=== PATIENT | female | born 1945 | race Caucasian/White ===

== ENCOUNTER 2020-08-06 14:14 | Inpatient (IN) | payer MEDICARE ==
[2020-08-06] MEDS ORDERED: HUMAN PROTHROMBIN COMPLX IV SCH (15:45)
[2020-08-06] MEDS ORDERED: [UNRECOGNIZED DRUG - OTHER] IV SCH (15:45)
[2020-08-06] MEDS ORDERED: HUM PROTHROMBIN CPLX IV SCH (15:45)
[2020-08-06] MEDS ORDERED: Pantoprazole 40 MG VIAL ONE (15:50)
[2020-08-06 15:53] LABS: #Basophils 0.1 thou/uL (0.0-0.2); #Lymphocytes 1.9 thou/uL (1.20-3.40); #Monocytes 0.7 thou/uL (0.11-0.59); #Neutrophils 3.8 thou/uL (1.40-6.50); %Basophils 0.9 % (0.0-1.0); %Eosinophils 0.6 % (0.0-10.0); %Monocytes 10.4 % (0.0-10.0); Hemoglobin 8.6 g/dL (12.0-16.0); Mean Corpuscular HGB CONC 32.5 g/dL (32.0-36.0); Mean Corpuscular Hemoglobin 28.4 pg (27.0-31.0); Mean Corpuscular Volume 87.3 fL (78.0-98.0); Mean Platelet Volume 7.8 fL (7.4-10.4); Platelet Count 167 thou/uL (130-400); RBC Distribution Width 14.5 % (11.5-14.5); Red Blood Cell (RBC) Count 3.03 mill/uL (4.20-5.40); White Blood Cell (WBC) Count 6.4 thou/uL (4.8-10.8)
[2020-08-06] MEDS ORDERED: Oxymetazoline HCl 0.05% (30 ML BOT) ONE (16:37)
--- NOTE | 2020-08-06 17:33 | PDOC.HHP ---
Hospitalist HPI - History of Present Illness dizziness History of Present Illness: Patient is a 75 year old female with a PMH of blindness, tobacco smoking, CAD S/P CABG and aortic valve replacement with a bovine bioprosthetic valve in 2011. Patient follows up with Dr. Price from cardiology. She has been stable over these years until today when she woke up feeling dizzy and diaphoretic. She was also complaining of left shoulder pain. She denies any abdominal pain. She checked her BP and it was 88/44 and decided to present to [place] [facility]. She was found to be severely anemia with Hb 6.4. Additional assessment showed she had melena. She received 2 units of pRBC and 80 mg of PPI bolus and was transferred here for higher level of care. Of note, patient usually takes a low dose ASA and eliquis. For the past 3 years, she has been using ibuprofen PM for sleep on a daily basis. ED Course: [facility] Repeat Hb 8.6 SBP 120 Normal Heart rate Reviewed records from OSH: - uptrending troponin 0.027--->0.027 - EKG with inferolateral T wave inversions Hospitalist History - Past Medical History Source: father (Father was on warfarin. Indication unknown Mother had blindness as well, and HTN) - Exam General - other findings: LETHARGIC, pale Eye: PERRL, anicteric sclera ENT: normocephalic atraumatic Neck: supple, symmetric Heart: RRR, murmur present Respiratory: CTAB, no wheezes, no rales, no ronchi Gastrointestinal: soft, non-tender, non-distended, normal bowel sounds Extremities: no cyanosis, no clubbing, no edema Psychiatric: normal affect, normal behavior Hospitalist Results - Labs Result Diagrams: 08/06/20 15:27 Lab results: WBC 6.4 thou/uL (4.8-10.8) 08/06/20 15:27 Hgb 8.6 g/dL (12.0-16.0) L 08/06/20 15:27 Hct 26.5 % (36.0-47.0) L 08/06/20 15:27 MCV 87.3 fL (78.0-98.0) 08/06/20 15:27 Plt Count 167 thou/uL (130-400) 08/06/20 15:27 Neutrophils % 59.0 % (42.0-75.0) 08/06/20 15:27 CK-MB (CK-2) 2.0 ng/mL (0-6.6) 08/06/20 15:27 Troponin I 0.041 ng/mL (< 0.028) H 08/06/20 15:27 Hospitalist H&P A/P - Problem (1) Upper GI bleeding Code(s): K92.2 - GASTROINTESTINAL HEMORRHAGE, UNSPECIFIED Status: Acute (2) Elevated troponin I level Code(s): R77.8 - OTHER SPECIFIED ABNORMALITIES OF PLASMA PROTEINS Status: Acute (3) Hx of CABG Status: Acute (4) S/P aortic valve replacement with bioprosthetic valve Code(s): Z95.3 - PRESENCE OF XENOGENIC HEART VALVE Status: Acute (5) Acute blood loss anemia Code(s): D62 - ACUTE POSTHEMORRHAGIC ANEMIA Status: Acute - Plan Plan: Assessment 75 year old female with CAD s/p CABG, bovine aortic valve currently admitted with suspected upper GI bleeding, which is most likely medication- induced as she is currently on ASA, apixaban and ibuprofen. She received 80 mg bolus of IV protonix, 2 units of pRBC at [place] [facility], AND [facility] in this ER ([facility]). Upper GI bleeding Acute blood loss anemia Elevated troponin and abnormal EKG CABG Bioprosthetic aortic valve Blindness plan: Admit to PCU with telemetry Hold offending agents: ASA, apixaban and ibuprofen Obtain coagulation panel Continue NPO status Continue LR for volume repletion 40 mg of IV PPI injections to minimize risk of volume overload Monitor CBC q 6 hours SCD for DVT ppx GI consulted by ER I will also trend her troponin and EKG Obtain a 2-D echo Fall precautions due to blindness PT/OT when medically cleared
[2020-08-06] MEDS ORDERED: Pantoprazole 80 MG in Sodium Chloride 0.9% 100 ML IVPB SCH (18:00)
[2020-08-06 18:06] LABS: #Basophils 0.1 thou/uL (0.0-0.2); #Eosinphils 0.1 thou/uL (0.0-0.7); #Lymphocytes 1.8 thou/uL (1.20-3.40); #Monocytes 0.7 thou/uL (0.11-0.59); #Neutrophils 3.8 thou/uL (1.40-6.50); %Basophils 1.1 % (0.0-1.0); %Eosinophils 1.2 % (0.0-10.0); %Lymphocytes 28.4 % (21.0-51.0); %Monocytes 10.3 % (0.0-10.0); %Neutrophils 59.1 % (42.0-75.0); Hemoglobin 8.7 g/dL (12.0-16.0); Mean Corpuscular Hemoglobin 28.5 pg (27.0-31.0); Mean Corpuscular Volume 86.4 fL (78.0-98.0); Mean Platelet Volume 7.6 fL (7.4-10.4); Platelet Count 160 thou/uL (130-400); RBC Distribution Width 14.3 % (11.5-14.5); Red Blood Cell (RBC) Count 3.05 mill/uL (4.20-5.40); White Blood Cell (WBC) Count 6.4 thou/uL (4.8-10.8)
[2020-08-06 18:12] LABS: INR-International Normal Ratio 1.2; PTT 31.5 sec (22.9-36.1)
[2020-08-06 21:38] VITALS: BMI 26.7
[2020-08-07] MEDS: Lactated Ringer's 1,000 ML IV SCH ×4 (00:01→19:25)
[2020-08-07] MEDS: Pantoprazole 40 MG VIAL IVP SCH ×3 (00:01→20:37)
[2020-08-07] MEDS ORDERED: HYDROcodone/Acetaminophen 5/325 mg Tablet PO SCH ×2 (00:30→21:15)
[2020-08-07 05:52] LABS: SARS-CoV-2 PCR by NAA Not Detected (NotDetected)
[2020-08-07] MEDS ORDERED: Succinylcholine 200 MG/10 ml SYRINGE FS ONE (09:35)
[2020-08-07] MEDS ORDERED: Ondansetron PF 4 MG/2 ML Vial ONE (09:35)
[2020-08-07] MEDS ORDERED: Dexamethasone 20 MG/5 ML VIAL ONE (09:35)
[2020-08-07] MEDS ORDERED: PROPOFOL 200 MG/20 ML VIAL ONE (09:35)
--- NOTE | 2020-08-07 09:38 | CON ---
DATE OF CONSULTATION: 08/07/2020 REASON FOR CONSULT: GI hemorrhage. HISTORY OF PRESENT ILLNESS: Ms. Terry is a 75-year-old female, history of being blind, previous coronary artery disease with bypass and aortic valve replacement, bovine prosthetic valve in 2011. He sees Dr. Price and sees TOÑO Sanchez in [place], [place]. She was in her normal state of health yesterday when she began to complain of bad left shoulder pain and felt diaphoretic and almost passed out. She had some loose stools at home apparently, but she could not see the color. She has retinitis pigmentosa. She was hypotensive and called the emergency room and came to the hospital in her hemoglobin was 6.4. She also had melena on rectal exam. She received 2 units of blood and a PPI bolus and transferred here. Apparently, the patient takes aspirin, Eliquis at home. She was taking some Motrin PM apparently as well. PAST MEDICAL HISTORY: 1. Coronary artery disease, status post bypass. 2. Aortic valve replacement with pig valve. 3. Retinitis pigmentosa. PAST SURGICAL HISTORY: Aortic valve replacement, CABG, previous cholecystectomy, hernia repair. SOCIAL HISTORY: Patient drinks rarely socially. She does not use drugs. She does smoke. Some reports indicate she stopped in 2011. ALLERGIES: IODINE. MEDICATIONS: 1. Digoxin. 2. Lasix. 3. Metoprolol. 4. K-Dur. 5. Alendronate. 6. . 7. Aspirin. 8. Irbesartan. 9. Furosemide. 10. Ibuprofen. 11. Eliquis. 12. Fosamax. Present medications: 1. Protonix 40 mg IV q.12. 2. LR 125 an hour. REVIEW OF SYSTEMS: The patient is a little bit confused, talking with her significant other. He states this is not usually the case. She is blind, has decreased vision. Her left shoulder pain persists, but is not as bad as it was when she came in. She denies any shortness of breath. She denies any cough. She denies any hematemesis. She denies any bright red blood per rectum. She denies abdominal pain, rashes, myalgias, arthralgias, or edema in her legs. PHYSICAL EXAMINATION: VITAL SIGNS: Temperature 98, pulse 75, blood pressure 121/58. GENERAL: She is resting comfortably in bed. She is very pleasant. She has poor memory for events of yesterday. She is in no distress. HEENT: Conjunctivae and sclerae are pale and clear respectively. Oropharynx, no lesions. NECK: Supple without any adenopathy. There is transmitted murmur to the right carotid. HEART: Has a systolic ejection murmur 4+. LUNGS: Expiratory wheezing. ABDOMEN: Soft and nontender with no rebound or guarding. EXTREMITIES: Reveal no clubbing, cyanosis, or edema. SKIN: Without lesions. NEUROLOGIC: She is otherwise intact. LABORATORY DATA: Hemoglobin was 6.4 on presentation at outside hospital yesterday, baseline was 11.5 on 03/30/2020. Hemoglobin 6.4 today, it was 8.6 on arrival yesterday here and at 1754, it was 8.7, has not been rechecked today. INR 1.2. Sodium 137, potassium 3.8, BUN and creatinine 20 and 0.6, glucose 132, calcium 7.5. Liver function tests normal. Troponin was 0.022, then 0.027 and 0.041. Protein 5.8, albumin 3.0. Urine, trace blood. Digoxin 0.45. COVID negative screen. Chest x-ray, no acute cardiopulmonary processes. ASSESSMENT: 1. A 75-year-old female, on Eliquis, aspirin, and also taking ibuprofen at home, who presented with melena and drop in hemoglobin after presyncopal episode at home, presently hemodynamically stable. 2. It is unclear why she is on Eliquis. She may have atrial fibrillation. She has a porcine valve. She would not need anticoagulation for that. 3. Coronary artery disease. 4. Retinitis pigmentosa with blindness. PLAN: EGD today. PPIs. Job ID: [id number]
[2020-08-07 13:23] LABS: #Lymphocytes 0.8 thou/uL (1.20-3.40); #Monocytes 0.2 thou/uL (0.11-0.59); #Neutrophils 6.5 thou/uL (1.40-6.50); %Basophils 0.1 % (0.0-1.0); %Eosinophils 0.5 % (0.0-10.0); %Lymphocytes 10.7 % (21.0-51.0); %Monocytes 2.3 % (0.0-10.0); %Neutrophils 86.5 % (42.0-75.0); Hemoglobin 7.5 g/dL (12.0-16.0); Mean Corpuscular HGB CONC 33.1 g/dL (32.0-36.0); Mean Corpuscular Volume 87.7 fL (78.0-98.0); Mean Platelet Volume 7.7 fL (7.4-10.4); Platelet Count 143 thou/uL (130-400); RBC Distribution Width 15.1 % (11.5-14.5); Red Blood Cell (RBC) Count 2.57 mill/uL (4.20-5.40); White Blood Cell (WBC) Count 7.5 thou/uL (4.8-10.8)
[2020-08-07 13:43] LABS: Anion Gap 11 mmol/L (10-20); BUN (Urea Nitrogen) 21 mg/dL (9.8-20.1); Calc. Creatinine Clearance 81 mL/min (70-130); Calcium 7.9 mg/dL (7.8-10.44); Carbon Dioxide 24 mmol/L (23-31); Chloride 108 mmol/L (98-107); Glucose 140 mg/dL (83-110); Potassium 4.2 mmol/L (3.5-5.1); Sodium 139 mmol/L (136-145)
[2020-08-07 13:48] LABS: Troponin I 0.076 ng/mL (< 0.028)
--- NOTE | 2020-08-07 14:03 | PDOC.HOSPP ---
- Subjective Encounter Date: 08/07/20 Subjective: Patient seen by me after her EGD. Tolerated the procedure well. Mental status is intact, palor nearly resolved. - Objective Vital Signs & Weight: Vital Signs (12 hours) Temp Pulse Resp BP Pulse Ox 08/07/20 07:30 97.9 F 94 16 116/57 L 97 08/07/20 05:40 98.3 F 75 18 121/58 L 95 Weight Weight 160 lb 14.999 oz I&O: 08/06/20 08/07/20 08/08/20 06:59 06:59 06:59 Intake Total 1060 Balance 1060 Result Diagrams: 08/07/20 13:11 08/07/20 13:11 Hospitalist ROS - Medication Medications: Active Medications Generic Name Dose Route Start Last Admin Trade Name Freq PRN Reason Stop Dose Admin Lactated Ringer's 1,000 mls @ 125 mls/hr 08/06/20 18:00 08/07/20 07:37 Lactated Ringer's IV Not Given .Q8H VERNELL Pantoprazole Sodium 40 mg 08/06/20 21:00 08/07/20 00:01 Pantoprazole 40 Mg Vial IVP 40 mg Q12HR VERNELL Administration - Exam General Appearance: NAD, awake alert General - other findings: less lethargic Eye: anicteric sclera ENT: normocephalic atraumatic Neck: supple, symmetric Heart: murmur present Respiratory: CTAB, no wheezes, no rales, no ronchi Gastrointestinal: soft, non-tender, non-distended, normal bowel sounds Extremities: no cyanosis, no clubbing, no edema Neurological: cranial nerve grossly intact Psychiatric: normal affect, normal behavior Hosp A/P (1) Upper GI bleeding Code(s): K92.2 - GASTROINTESTINAL HEMORRHAGE, UNSPECIFIED Status: Acute (2) Elevated troponin I level Code(s): R77.8 - OTHER SPECIFIED ABNORMALITIES OF PLASMA PROTEINS Status: Acute (3) Hx of CABG Status: Acute (4) S/P aortic valve replacement with bioprosthetic valve Code(s): Z95.3 - PRESENCE OF XENOGENIC HEART VALVE Status: Acute (5) Acute blood loss anemia Code(s): D62 - ACUTE POSTHEMORRHAGIC ANEMIA Status: Acute - Plan Assessment 75 year old female with CAD s/p CABG, bovine aortic valve transferred from [facility] ER where she presented with dizziness and melena. She was found to have a Hb 6.3, concerning for upper GI bleeding. Patient has been on eliquis, ASA and ibuprofen PM. She received 80 mg bolus of IV protonix, 2 units of pRBC at [facility], AND [facility] in this ER ([facility]). She underwent EGD on 08/07, results are still pending. [facility], her H/H is still trending down Acute GI bleeding Acute blood loss anemia CAD S/P CABG Aortic valve replacement PLAN: I will continue patient on PPI INJECTIONS Follow up EGD report Concern for downtrending H/H. I will keep the patient for hemodyanamic monitoring and H/H check Transfuse if Hb < 7 Defer to GI decision to proceed with additional endoscopic procedures Continue holding ASA, eliquis and ibuprofen. The indications for eliquis is still unclear. She will need to follow up with her [employer] Continue telemetry monitoring
[2020-08-07] MEDS ORDERED: GoLYTELY 4,000 ml Bottle PO SCH (17:00)
[2020-08-07 20:06] LABS: #Monocytes 0.3 thou/uL (0.11-0.59); #Neutrophils 5.8 thou/uL (1.40-6.50); %Basophils 0.2 % (0.0-1.0); %Eosinophils 0.1 % (0.0-10.0); %Lymphocytes 13.8 % (21.0-51.0); %Monocytes 3.5 % (0.0-10.0); %Neutrophils 82.4 % (42.0-75.0); Mean Corpuscular HGB CONC 34.1 g/dL (32.0-36.0); Mean Corpuscular Hemoglobin 29.1 pg (27.0-31.0); Mean Corpuscular Volume 85.4 fL (78.0-98.0); Mean Platelet Volume 7.8 fL (7.4-10.4); Platelet Count 149 thou/uL (130-400); Red Blood Cell (RBC) Count 2.74 mill/uL (4.20-5.40); White Blood Cell (WBC) Count 7.1 thou/uL (4.8-10.8)
[2020-08-07] MEDS ORDERED: Docusate Sodium 100 MG/10 ML UDCUP PO PRN (21:13)
[2020-08-08 04:58] LABS: Hemoglobin 7.1 g/dL (12.0-16.0)
[2020-08-08] MEDS: Pantoprazole 40 MG VIAL IVP SCH ×2 (09:10→19:48)
[2020-08-08 09:35] LABS: Troponin I 0.072 ng/mL (< 0.028)
--- NOTE | 2020-08-08 12:53 | PDOC.HOSPP ---
- Subjective Encounter Date: 08/08/20 Subjective: Patient is feeling well. Denies chest pain, dizziness or feeling lightheaded. Slightly hypotensive this morning with SBP 90. Downtrending H/H, lowest hb 7.1 - Objective Vital Signs & Weight: Vital Signs (12 hours) Temp Pulse Pulse Resp BP BP BP 08/08/20 12:26 98.6 F 68 16 99/55 L 08/08/20 12:11 98.5 F 74 16 112/82 08/08/20 09:05 98.6 F 75 16 115/59 L 08/08/20 04:47 98.3 F 72 16 90/49 L Pulse Ox 08/08/20 12:26 97 08/08/20 12:11 96 08/08/20 09:05 100 08/08/20 04:47 96 Weight Weight 160 lb 14.4 oz I&O: 08/07/20 08/08/20 08/09/20 06:59 06:59 06:59 Intake Total 1060 950 0 Balance 1060 950 0 Result Diagrams: 08/08/20 04:22 08/07/20 13:11 Hospitalist ROS - Medication Medications: Active Medications Generic Name Dose Route Start Last Admin Trade Name Freq PRN Reason Stop Dose Admin Docusate Sodium 100 mg 08/07/20 21:13 08/07/20 22:54 Docusate Sodium 100 Mg/10 Ml Udcup PO 100 mg DAILY PRN Administration Constipation Pantoprazole Sodium 40 mg 08/06/20 21:00 08/08/20 09:10 Pantoprazole 40 Mg Vial IVP 40 mg Q12HR VERNELL Administration Sodium Chloride 10 ml 08/07/20 08:14 08/08/20 09:12 Flush - Normal Saline 10 Ml Syringe IVF 10 ml PRN PRN Administration Saline Flush - Exam General Appearance: NAD, awake alert ENT: normocephalic atraumatic Heart: RRR, murmur present Respiratory: CTAB, no wheezes, no rales, no ronchi Gastrointestinal: soft, non-tender, non-distended, normal bowel sounds Extremities: no cyanosis, no clubbing, no edema Musculoskeletal: normal tone, normal strength Psychiatric: normal affect, normal behavior Hosp A/P (1) Upper GI bleeding Code(s): K92.2 - GASTROINTESTINAL HEMORRHAGE, UNSPECIFIED Status: Acute (2) Elevated troponin I level Code(s): R77.8 - OTHER SPECIFIED ABNORMALITIES OF PLASMA PROTEINS Status: Acute (3) Hx of CABG Status: Acute (4) S/P aortic valve replacement with bioprosthetic valve Code(s): Z95.3 - PRESENCE OF XENOGENIC HEART VALVE Status: Acute (5) Acute blood loss anemia Code(s): D62 - ACUTE POSTHEMORRHAGIC ANEMIA Status: Acute - Plan Assessment 75 year old female with a PMH of Retitinitis Pigmentosa, CAD s/p CABG, bovine aortic valve transferred from [facility] ER where she presented with dizziness and melena. She was found to have a Hb 6.3, and transferred here for higher level of care for evaluation of upper GI bleeding. Patient has been on eliquis, ASA and ibuprofen PM. She received 80 mg bolus of IV protonix, 2 units of pRBC at [facility], AND [facility] in this ER ([facility]). She underwent EGD on 08/07, results are still pending. In the meantime, her H/H is still trending down. Additional work up included an echocardiogram, which revealed a critical aortic stenosis with high mean gradient. I have consulted cardiology. Acute GI bleeding Acute blood loss anemia CAD S/P CABG Aortic valve replacement Severe aortic stenosis - mean gradient of 60 mmHg Retinitis Pigmentosa PLAN: Transfuse 1 unit of pRBC to keep Hb > 8 Repeat CBC in the morning Continue IV PPI injections Follow up EGD report Cardiology has been consulted for severe aortic stenosis Defer to GI decision to proceed with additional endoscopic procedures. May need cardiac clearance if there is indication for additional procedures. Continue holding ASA, eliquis and ibuprofen. The indications for eliquis is still unclear. She will need to follow up with her [employer] (Dr. Price) Continue telemetry monitoring PT/OT when medically cleared
[2020-08-08] MEDS: Acetaminophen 325 MG TAB PO PRN (13:43)
--- NOTE | 2020-08-08 16:18 | CON ---
DATE OF CONSULTATION: 08/08/2020 REASON FOR CONSULTATION: Aortic stenosis. PRIMARY INDEXER: Tuan Price MD HISTORY OF PRESENT ILLNESS: Ms. Terry is a very pleasant 75-year-old woman. The patient has a history of aortic valve replacement, bioprosthetic valve in 2012 and bypass x2. The patient recently has had hypotension and diaphoresis. She went to the emergency room. She was found to be severely anemic. Also, it has been found that she has severe stenosis of her aortic valve prosthesis. She is not having chest pain or pressure. She feels cold, but no shortness of breath. No chest tightness or pain. The patient has a history of paroxysmal atrial fibrillation. She has been maintained on apixaban and aspirin. HOME MEDICATIONS: Include: 1. Apixaban. 2. Aspirin. 3. Crestor. 4. Furosemide. 5. Digoxin. 6. Metoprolol. ALLERGIES: TO IODINE. REVIEW OF SYSTEMS: CONSTITUTIONAL: She feels cold. VISION: No changes. HEARING: No changes. PULMONARY: No cough or wheezing. CARDIAC: No chest pain. GASTROINTESTINAL: No nausea, vomiting, or diarrhea. Otherwise, negative review of systems. PHYSICAL EXAMINATION: GENERAL: This is a very pleasant 75-year-old woman. VITAL SIGNS: Blood pressure is 115/59, pulse 74, blood pressure earlier was 90/50. HEENT: Her vision is very impaired, but eyes appear normal to inspection. NECK: Veins are normal. Carotids, normal upstrokes. There are bilateral harsh systolic sounds of a murmur transmitted from aortic valve. CARDIAC: There is a 4/6 harsh systolic murmur at the right upper sternal border, radiates to both carotids. No diastolic murmur. ABDOMEN: Soft, nontender. EXTREMITIES: No clubbing or cyanosis. Warm and dry. Pedal pulses palpable. PERTINENT LABORATORY DATA: Hemoglobin is down to 7.1 since she got 2 units of packed red blood cells in [place] and 1 unit here. She was scheduled to get another unit of blood. Echocardiogram shows normal left ventricular function with a very high gradient across aortic valve prosthesis. Peak at 110 mmHg, mean 60 mm. CONCLUSION: 1. Anemia secondary to gastrointestinal blood loss. 2. Paroxysmal atrial fibrillation. 3. Severely stenotic bioprosthetic aortic valve. PLAN: 1. Apixaban and aspirin were discontinued presently. 2. May need further blood transfusions. 3. If short of breath, would need Lasix along with the blood, but she looks like she is very comfortable right now, probably need to stay over the weekend. Dr. Price will be back to see her on Monday. Job ID: [id number]
[2020-08-09 04:09] LABS: #Eosinphils 0.1 thou/uL (0.0-0.7); #Monocytes 0.6 thou/uL (0.11-0.59); #Neutrophils 2.8 thou/uL (1.40-6.50); %Basophils 0.1 % (0.0-1.0); %Eosinophils 1.6 % (0.0-10.0); %Neutrophils 51.3 % (42.0-75.0); Hemoglobin 7.8 g/dL (12.0-16.0); Mean Corpuscular HGB CONC 33.6 g/dL (32.0-36.0); Mean Corpuscular Hemoglobin 29.3 pg (27.0-31.0); Mean Corpuscular Volume 87.2 fL (78.0-98.0); Mean Platelet Volume 8.4 fL (7.4-10.4); Platelet Count 120 thou/uL (130-400); RBC Distribution Width 15.5 % (11.5-14.5); Red Blood Cell (RBC) Count 2.67 mill/uL (4.20-5.40); White Blood Cell (WBC) Count 5.5 thou/uL (4.8-10.8)
[2020-08-09] MEDS: Pantoprazole 40 MG VIAL IVP SCH ×2 (08:25→21:17)
--- NOTE | 2020-08-09 08:59 | PRG ---
DATE OF SERVICE: 08/08/2020 SUBJECTIVE: Ms. Terry is resting comfortably in bed. She asked for some help with her IV from the nurses as she did not think it was working right, but it seems to be infusing well. She has had one bowel movement today. I talked with the nurses, it was old blood, but nothing fresh. MEDICATIONS: 1. Protonix 40 IV q.12. 2. Tylenol. 3. Colace. OBJECTIVE: VITAL SIGNS: Temperature is 98.6, respirations 16, pulse 68, blood pressure 99/55. CARDIAC: Systolic ejection murmur, severe. EXTREMITIES: Edema, minimal. LABORATORY DATA: Hemoglobin 7.1 today, it was 8.0 yesterday. Troponin 0.072. Repeat electrolytes not performed. Echo showed severe aortic stenosis. ASSESSMENT: 1. GI bleed. Upper endoscopy showed some blood in the stomach and duodenal area, but once it was suctioned away, could not localize a bleeding site. There were few small AVMs, one of which was cauterized in pyloric channel. There have been no signs of further bleeding. 2. There were plans for colonoscopy today, but Dr. Robles of Cardiology stated with her severe aortic stenosis, she was not a candidate for elective endoscopy at this time. RECOMMENDATIONS: 1. Continue PPI. 2. Re-evaluate need for long-term anticoagulation. We will defer to Cardiology. It is not clear to me why she was on it in the first place. 3. We will follow along with you. Job ID: [id number]
--- NOTE | 2020-08-09 14:23 | PDOC.HOSPP ---
- Subjective Encounter Date: 08/09/20 Subjective: Patient transfused yesterday for hemoglobin of 7.1. She responded appro priately. She is doing well this morning without cardiopulmonary distress. - Objective Vital Signs & Weight: Vital Signs (12 hours) Temp Pulse Resp BP BP Pulse Ox 08/09/20 11:29 98.4 F 79 16 120/56 L 97 08/09/20 08:25 98.4 F 75 16 116/53 L 95 08/09/20 03:45 97.8 F 73 18 135/60 95 Weight Weight 160 lb 14.4 oz I&O: 08/08/20 08/09/20 08/10/20 06:59 06:59 06:59 Intake Total 950 350 Balance 950 350 Result Diagrams: 08/09/20 03:15 08/07/20 13:11 Hospitalist ROS - Medication Medications: Active Medications Generic Name Dose Route Start Last Admin Trade Name Freq PRN Reason Stop Dose Admin Acetaminophen 650 mg 08/07/20 21:13 08/08/20 13:43 Acetaminophen 325 Mg Tab PO 650 mg Q4H PRN Administration Headache/Fever/Mild Pain (1-3) Docusate Sodium 100 mg 08/07/20 21:13 08/07/20 22:54 Docusate Sodium 100 Mg/10 Ml Udcup PO 100 mg DAILY PRN Administration Constipation Pantoprazole Sodium 40 mg 08/06/20 21:00 08/09/20 08:25 Pantoprazole 40 Mg Vial IVP 40 mg Q12HR VERNELL Administration Sodium Chloride 10 ml 08/07/20 08:14 08/08/20 09:12 Flush - Normal Saline 10 Ml Syringe IVF 10 ml PRN PRN Administration Saline Flush - Exam General Appearance: NAD, awake alert Eye: anicteric sclera ENT: normocephalic atraumatic Neck: supple, symmetric Heart: murmur present Heart - other findings: Systolic ejection murmur Respiratory: CTAB, no wheezes, no rales, no ronchi Gastrointestinal: soft, non-tender, non-distended, normal bowel sounds Extremities: no clubbing, no edema Neurological: cranial nerve grossly intact Psychiatric: normal affect, normal behavior Hosp A/P (1) Upper GI bleeding Code(s): K92.2 - GASTROINTESTINAL HEMORRHAGE, UNSPECIFIED Status: Acute (2) Elevated troponin I level Code(s): R77.8 - OTHER SPECIFIED ABNORMALITIES OF PLASMA PROTEINS Status: Acute (3) Hx of CABG Status: Acute (4) S/P aortic valve replacement with bioprosthetic valve Code(s): Z95.3 - PRESENCE OF XENOGENIC HEART VALVE Status: Acute (5) Acute blood loss anemia Code(s): D62 - ACUTE POSTHEMORRHAGIC ANEMIA Status: Acute - Plan Assessment 75 year old female with a PMH of Retitinitis Pigmentosa, CAD s/p CABG, bovine aortic valve and possibly atrial fibrillation. She was transferred from [facility] where she presented with dizziness and melena. She was found to have a Hb 6.3, and transferred here for higher level of care. Her active home meds include eliquis, ASA and ibuprofen PM. She received 80 mg bolus of IV protonix, 2 units of pRBC at [facility], AND [facility] in this ER ([facility]). She underwent EGD on 08/07. There was evidence of some blood in the stomach and the duodenal area as well as few small AVMs 1 of which was cauterized. After suctioning out, there was no other evidence of bleeding. She required another transfusion post EGD due to downtrending hemoglobin. She was not particularly symptomatic. She is currently being monitored. Also during this admission an echocardiogram revealed critical aortic stenosis with high mean gradient. Cardiology has been consulted. Patient follows up with her inventory checker Dr. Price who should be back on service tomorrow. As per the on-call inventory checker Dr. Robles, we should not attempt any further endoscopic procedure due to her severe aortic stenosis. Acute GI bleeding Acute blood loss anemia Severe aortic stenosis - mean gradient of 60 mmHg CAD S/P CABG Aortic valve replacement Retinitis Pigmentosa PLAN: We will repeat CBC tomorrow and transfuse if indicated Follow-up cardiology recommendation regarding management of severe arctic stenosis Continue PPI IV Continue holding ASA, eliquis and ibuprofen. Continue telemetry monitoring PT/OT when medically cleared
--- NOTE | 2020-08-09 14:41 | PRG ---
DATE OF SERVICE: 08/09/2020 SUBJECTIVE: Ms. Terry is eating regular diet. She had a bowel movement today, which was dark, but not bloody. She denies getting dizzy or weak when she gets up. OBJECTIVE: VITAL SIGNS: Temperature 98, pulse 79, blood pressure 120/56. ABDOMEN: Soft, nontender. LABORATORY DATA: White count 5.5, hemoglobin 7.8, stable over the past two days, platelets 120. ASSESSMENT: Gastrointestinal bleeding of unclear etiology. Upper endoscopy did show some clot in the antral pyloric region, but no overt lesion. Ultimately, we did find a small erosions which did cauterize the edge of one, but it did not account for the bleeding that I saw. We are holding off on colonoscopy as she has severe aortic stenosis and Cardiology felt that she should not undergo further sedation or endoscopy at this time she had acute hemorrhage. She has no signs of active bleeding now. RECOMMENDATIONS: Continue PPI. We will follow from a distance and available intervene if needed. Job ID: [id number]
--- NOTE | 2020-08-09 20:01 | OP ---
DATE OF PROCEDURE: 08/07/2020 PROCEDURE PERFORMED: Esophagogastroduodenoscopy. This is already in the queue as not transcribed disregarded and transcribed the other dictation. PREPROCEDURE DIAGNOSES: 1. Gastrointestinal hemorrhage. 2. Anticoagulation. POSTPROCEDURE DIAGNOSES: Small erosion in the antral pyloric region cauterized without visible vessel, but no other cystic lesion seen. ANESTHESIA: TIVA changed to general endotracheal anesthesia. RECOMMENDATIONS: IV PPI. Observe. Consider colonoscopy, if she has continued bleeding. DESCRIPTION OF PROCEDURE: After the patient was informed of the risks, benefits, and possible complications of endoscopy including perforation, bleeding, and reaction to medication, and aspiration, informed consent was obtained. The patient was brought to the endoscopy suite, where she was sedated in gradual fashion. A bite block was placed in the incisural orifice. The endoscope was advanced through the esophagus, stomach, into the second and third portion of the duodenum. There was some small erosions in the pyloric channel, but no other lesions seen. Retroflexed views were normal. When bringing the scope back out of the duodenum after a second look, there appeared to be a large clot that formed in the area of the pylorus and antrum. The scope was removed and the patient was intubated. It was felt she was bleeding rapidly. When she was intubated, put the scope back down and no blood was seen anywhere. No residual blood was seen. We looked very closely for about 20 minutes for Dieulafoy like lesions and saw none. I did cauterize a small ulcer in the pyloric channel. No other lesions were seen. The scope was removed. The patient was brought to recovery room in stable condition. After procedure, I talked with the patient if she has been having nosebleeds and she denied those. We will observe. Job ID: [id number]
[2020-08-09] MEDS: Acetaminophen 325 MG TAB PO PRN (21:20)
[2020-08-10 04:45] LABS: #Eosinphils 0.1 thou/uL (0.0-0.7); #Lymphocytes 1.5 thou/uL (1.20-3.40); #Monocytes 0.5 thou/uL (0.11-0.59); #Neutrophils 2.1 thou/uL (1.40-6.50); %Basophils 0.4 % (0.0-1.0); %Eosinophils 1.3 % (0.0-10.0); %Monocytes 12.8 % (0.0-10.0); %Neutrophils 50.5 % (42.0-75.0); Hemoglobin 7.3 g/dL (12.0-16.0); Mean Corpuscular HGB CONC 32.7 g/dL (32.0-36.0); Mean Corpuscular Hemoglobin 28.9 pg (27.0-31.0); Mean Corpuscular Volume 88.6 fL (78.0-98.0); Mean Platelet Volume 8.9 fL (7.4-10.4); Platelet Count 100 thou/uL (130-400); RBC Distribution Width 15.6 % (11.5-14.5); Red Blood Cell (RBC) Count 2.51 mill/uL (4.20-5.40); White Blood Cell (WBC) Count 4.2 thou/uL (4.8-10.8)
--- NOTE | 2020-08-10 05:06 | OP ---
DATE OF PROCEDURE: 08/07/2020 PREPROCEDURE DIAGNOSES: 1. Melena and anemia. 2. History of heavy non-steroidal anti-inflammatory drug use. 3. Drop in hemoglobin from baseline around 11 last year to 6.4, and the patient is now 8.7 with transfusion. ANESTHESIA: TIVA, conversion to general endotracheal anesthesia secondary to bleeding. POSTOPERATIVE DIAGNOSES: 1. Normal esophagus. 2. Normal stomach except for few small AVMs, which were nonbleeding. These were cauterized with 7-[place] Islander heater probe. 3. Duodenum initially normal, small erosions in the pyloric channel. In the process of the endoscopy, a large clot appeared in the area of the pylorus and antrum. Once this was cleared, however, no overt bleeding source was identified. Evaluation of the antral pyloric region and the duodenum to the third portion for over 30 minutes revealed no other source except for a few small AVMs and a small erosion in the pyloric channel. These were cauterized. We were not convinced they were a bleeding source. Prolonged evaluation to look for Dieulafoy's like lesion was unrevealing. No further blood accumulation was noted. Clear bile was noted coming from the ampulla. PROCEDURES PERFORMED: EGD with control of hemorrhage with 7-[place] Islander heater probe. RECOMMENDATIONS: 1. Continue PPI. 2. Colonoscopy tomorrow. PROCEDURE IN DETAIL: The patient was informed the risks, benefits, and possible complications of endoscopy including perforation, reaction to medication, aspiration, informed consent was obtained. The patient was brought to the endoscopy suite, where she was sedated in gradual fashion. The patient was sedated. The endoscope was advanced into the esophagus, stomach, second and third portions of the duodenum. The esophagus was normal. The stomach initially looked normal except for a few small AVMs, nonbleeding. There was no bleeding. There was clear yellow bile noted in the stomach. Pyloric channel was notable for a very small 2 mm erosion with no visible vessel. Advancing the scope into the bulb, there were no lesions. Clear bile in the duodenum and no blood. Bringing the scope back, taking a close look behind the apex of the duodenal bulb. No ulcers were seen. No vessels were seen. A little small AVM was seen, which was nonbleeding and cauterized. Bringing the scope back out to the pylorus, also fairly large amount of clot, probably 10 mL was noted to spontaneously appear in the stomach. At this point in time, decision was made to intubate the patient. The scope was removed. The patient was intubated and we changed the scope to a therapeutic scope. We went back down. No clot could be found. No active bleeding site could be found. The antral pyloric region and entire stomach were evaluated in forward and retroflexed views with full distention with no evidence of Dieulafoy's like lesion. Attention was then turned to the body of the stomach, where there was a small oozing from the AVM and this was cauterized with 7-[place] Islander heater probe. The small erosion in the pyloric channel was cauterized and then the duodenal bulb and apex were evaluated very closely for about 20 more minutes with going back and forth between the bulb and the second and third portion of duodenum. No further bleeding ensued and no bleeding sites were identified. The scope was removed. The patient tolerated the procedure well. There were no complications. Job ID: [id number]
[2020-08-10] MEDS: Pantoprazole 40 MG VIAL IVP SCH ×2 (09:33→20:07)
--- NOTE | 2020-08-10 13:33 | PQF ---
CLINICAL DOCUMENTATION CLARIFICATION FORM Dear Dr. Karlos Bruce Date: 08/10/2020 7172 Please exercise your independent, professional judgment in responding to the clarification form. Clinical indicators are provided on the bottom of this form for your review. Please check appropriate box(es): [ ] Type 1 ND (NSTEMI) [ ] Type 2 ND (T2MI) secondary to: [ ] hypertension [ ] arrhythmia [ ] severe anemia [ ] Insignificant Lab Values [ ] Unstable Angina [ ] ACS [ x ] Other: [ ] Takotsubo syndrome [ ] Other diagnosis ___Clinical indeterminate troponin elevation [ ] Unable to determine In addition, please specify: Present on Admission (POA): [ ] Yes [ ] No [ ] Unable to determine For continuity of documentation, please document condition throughout progress notes and discharge summary. Thank You. To be completed by CDI/Coding staff for physician review: CLINICAL INDICATORS - SIGNS / SYMPTOMS / LABS / RESULTS AND LOCATION IN EMR 08/06 Troponin I 0.041 08/07 Troponin I 0.076 08/08 Troponin I 0.072 Elevated troponin I level, Cardiology has been consulted. Patient follows up with her neck fitter Dr. Price who should be back on service tomorrow. As per the senior manager asset protection neck fitter Dr. Robles, we should not attempt any further endoscopic procedure due to her severe aortic stenosis ( PN/Abimaelmbfranco) 08/09 RISKS / RESULTS AND LOCATION IN EMR GI Bleed, Acute Blood loss Anemia ( PN/Buzombo) 08/09 TREATMENTS / RESULTS AND LOCATION IN EMR Cardiology Consult( Margaret/ 08/08) Continuous cardiac monitoring ( 08/06 present) Serial troponin ( 08/06 08/08) Thank You! CDS Signature: Karla Hoang RN Phone #: [phone] Date: 08/10/2020 This is a permanent part of the Medical Record [facility]
--- NOTE | 2020-08-10 16:34 | PRG ---
DATE OF SERVICE: 08/10/2020 SUBJECTIVE: Ms. Terry has had no further bleeding. OBJECTIVE: VITAL SIGNS: Temperature 98, pulse 77, blood pressure 125/60. ABDOMEN: Nontender. GENERAL: She is awake, alert, oriented. Her significant other is at the bedside. LABORATORY DATA: Hemoglobin 7.3, white count 4.2, platelet count 100. ASSESSMENT: Gastrointestinal hemorrhage, etiology is unclear. Upper endoscopy showed some clot in the antropyloric region with small erosion. This was cauterized. She has had no further bleeding at this time. I suspect bleeding was upper GI tract in origin that may be related to her anticoagulation and a small erosion. RECOMMENDATIONS: 1. Recommend she stay on a PPI. 2. Recommend she consider colonoscopy at a later date once the issues with her severe aortic stenosis are addressed. We can do that in the outpatient setting. Job ID: [id number]
--- NOTE | 2020-08-10 18:40 | PDOC.HOSPP ---
- Subjective Encounter Date: 08/10/20 Subjective: No acute events overnight. She is feeling well. There is a plan to transfer patient to [place] for TAVR. - Objective Vital Signs & Weight: Vital Signs (12 hours) Temp Pulse Pulse Pulse Resp BP BP 08/10/20 16:05 98.5 F 77 16 08/10/20 12:15 98.2 F 79 16 08/10/20 09:33 98.1 F 70 17 08/10/20 09:25 72 68 137/93 H 146/64 H BP Pulse Ox Pulse Ox Pulse Ox 08/10/20 16:05 125/60 97 08/10/20 12:15 136/81 98 08/10/20 09:33 146/64 H 97 08/10/20 09:25 96 97 Weight Weight 165 lb 3.2 oz I&O: 08/09/20 08/10/20 08/11/20 06:59 06:59 06:59 Intake Total 350 550 Balance 350 550 Result Diagrams: 08/10/20 03:24 08/07/20 13:11 Hospitalist ROS - Medication Medications: Active Medications Generic Name Dose Route Start Last Admin Trade Name Freq PRN Reason Stop Dose Admin Acetaminophen 650 mg 08/07/20 21:13 08/09/20 21:20 Acetaminophen 325 Mg Tab PO 650 mg Q4H PRN Administration Headache/Fever/Mild Pain (1-3) Docusate Sodium 100 mg 08/07/20 21:13 08/07/20 22:54 Docusate Sodium 100 Mg/10 Ml Udcup PO 100 mg DAILY PRN Administration Constipation Metoprolol Succinate 25 mg 08/10/20 09:00 08/10/20 09:33 Metoprolol Succinate Xl 25 Mg Tab PO 25 mg DAILY VERNELL Administration Pantoprazole Sodium 40 mg 08/06/20 21:00 08/10/20 09:33 Pantoprazole 40 Mg Vial IVP 40 mg Q12HR VERNELL Administration - Exam General Appearance: NAD, awake alert ENT: normocephalic atraumatic Heart: murmur present Respiratory: CTAB, no wheezes, no rales, no ronchi Gastrointestinal: soft, non-tender, non-distended, normal bowel sounds Extremities: no clubbing, 1+ LE edema Extremities - other findings: Mild left lower extremity edema Neurological: cranial nerve grossly intact Psychiatric: normal affect, normal behavior Hosp A/P (1) Upper GI bleeding Code(s): K92.2 - GASTROINTESTINAL HEMORRHAGE, UNSPECIFIED Status: Acute (2) Elevated troponin I level Code(s): R77.8 - OTHER SPECIFIED ABNORMALITIES OF PLASMA PROTEINS Status: Acute (3) Hx of CABG Status: Acute (4) S/P aortic valve replacement with bioprosthetic valve Code(s): Z95.3 - PRESENCE OF XENOGENIC HEART VALVE Status: Acute (5) Acute blood loss anemia Code(s): D62 - ACUTE POSTHEMORRHAGIC ANEMIA Status: Acute - Plan Assessment Patient is a 75 year old female with a PMH of Retitinitis Pigmentosa, CAD s/p CABG, severe arctic stenosis status post bovine aortic valve and possibly atrial fibrillation. She was transferred from [facility] where she presented with dizziness and melena. She was found to have a Hb 6.3, and transferred here for higher level of care. Her active home meds included eliquis, ASA and ibuprofen PM. She received 80 mg bolus of IV protonix, 2 units of pRBC at [facility], AND PCC in this ER ([place]). She underwent EGD on 08/07. There was evidence of some blood in the stomach and the duodenal area as well as few small AVMs 1 of which was cauterized. After suctioning out, there was no other evidence of bleeding. She required another transfusion post EGD due to downtrending hemoglobin. Patient was found to have severe critical aortic stenosis with high mean gradient. Her beauty culturist apprentice Dr. Price returned on service today, and recommend she be transferred to [place] for TAVR. Arrangements have already been made, her transfer is pending bed availability Acute GI bleeding Acute blood loss anemia Severe aortic stenosis - mean gradient of 60 mmHg CAD S/P CABG Aortic valve replacement Retinitis Pigmentosa PLAN: Transfer to [place] without delay if hemodynamically stable Continue PPI IV while in-house Continue holding ASA, eliquis and ibuprofen. Continue telemetry monitoring
[2020-08-10] MEDS: Acetaminophen 325 MG TAB PO PRN (20:08)
[2020-08-10] MEDS ORDERED: Rosuvastatin 10 MG TAB PO SCH (21:00)
[2020-08-11 04:47] LABS: #Eosinphils 0.1 thou/uL (0.0-0.7); #Lymphocytes 1.2 thou/uL (1.20-3.40); #Monocytes 0.5 thou/uL (0.11-0.59); #Neutrophils 2.2 thou/uL (1.40-6.50); %Basophils 0.6 % (0.0-1.0); %Eosinophils 2.9 % (0.0-10.0); %Lymphocytes 30.6 % (21.0-51.0); %Monocytes 11.5 % (0.0-10.0); %Neutrophils 54.4 % (42.0-75.0); Hemoglobin 7.3 g/dL (12.0-16.0); Mean Corpuscular HGB CONC 32.5 g/dL (32.0-36.0); Mean Corpuscular Hemoglobin 28.8 pg (27.0-31.0); Mean Corpuscular Volume 88.5 fL (78.0-98.0); Mean Platelet Volume 8.5 fL (7.4-10.4); Platelet Count 122 thou/uL (130-400); RBC Distribution Width 15.3 % (11.5-14.5); Red Blood Cell (RBC) Count 2.52 mill/uL (4.20-5.40)
[2020-08-11] MEDS: Pantoprazole 40 MG VIAL IVP SCH (07:48)
[2020-08-11 14:02] LABS: #Lymphocytes 1.1 thou/uL (1.20-3.40); #Monocytes 0.5 thou/uL (0.11-0.59); #Neutrophils 3.6 thou/uL (1.40-6.50); %Eosinophils 0.8 % (0.0-10.0); %Lymphocytes 21.5 % (21.0-51.0); %Monocytes 10.1 % (0.0-10.0); %Neutrophils 67.5 % (42.0-75.0); Mean Corpuscular HGB CONC 32.3 g/dL (32.0-36.0); Mean Corpuscular Hemoglobin 28.8 pg (27.0-31.0); Mean Corpuscular Volume 89.3 fL (78.0-98.0); Mean Platelet Volume 8.5 fL (7.4-10.4); Platelet Count 134 thou/uL (130-400); RBC Distribution Width 15.1 % (11.5-14.5); Red Blood Cell (RBC) Count 2.78 mill/uL (4.20-5.40); White Blood Cell (WBC) Count 5.3 thou/uL (4.8-10.8)
[2020-08-11 14:19] LABS: Anion Gap 12 mmol/L (10-20); BUN (Urea Nitrogen) 12 mg/dL (9.8-20.1); Calc. Creatinine Clearance 72 mL/min (70-130); Carbon Dioxide 22 mmol/L (23-31); Chloride 106 mmol/L (98-107); Glucose 108 mg/dL (83-110); Potassium 3.3 mmol/L (3.5-5.1); Sodium 137 mmol/L (136-145)
--- NOTE | 2020-08-11 15:56 | PDOC.DS.DS ---
Provider - Provider Date of Admission: 08/06/20 16:36 Date of Discharge: 08/11/20 Admitting Provider: Prince Dory Bruce MD Consultations: Cardiology, Gastroentrology Primary Care Physician: OUT OF TOWN Course - Hospital Course Hospital Course: Patient is a 75 year old female with a PMH of Retitinitis Pigmentosa, CAD s/p CABG, severe arctic stenosis status post bovine aortic valve and possibly atrial fibrillation. She was transferred from [facility] ER where she presented with dizziness and melena. Hb was 6.3 and she was transferred here for higher level of care. She was taking ASA, apixaban and PM ibuprofen at home. She received 80 mg bolus of IV protonix, 2 units of pRBC at [place] [facility], AND PCC in this ER ([place]). She underwent EGD on 08/07. There was evidence of some blood in the stomach and the duodenal area as well as few small AVMs 1 of which was cauterized. After suctioning out, there was no other evidence of bleeding. She required another transfusion post EGD due to downtrending hemoglobin. She has maintained her Hb > 7. Patient was also found to have severe critical aortic stenosis with high mean gradient. She was seen by her electrical panel builder Dr. Price who recommends transfer to [place] for TAVR. - Labs Lab Results: 08/11/20 13:31 08/11/20 13:31 Abnormal Lab Results - Last 48 hrs 08/07/20 08:47: Crossmatch See Detail 08/10/20 03:24: WBC 4.2 L, RBC 2.51 L, Hgb 7.3 L, Hct 22.2 L, RDW 15.6 H, Plt Count 100 L, Monocytes % 12.8 H 08/11/20 04:22: WBC 4.0 L, RBC 2.52 L, Hgb 7.3 L, Hct 22.3 L, RDW 15.3 H, Plt Count 122 L, Monocytes % 11.5 H 08/11/20 13:31: Potassium 3.3 L, Carbon Dioxide 22 L 08/11/20 13:31: RBC 2.78 L, Hgb 8.0 L, Hct 24.8 L, RDW 15.1 H, Monocytes % 10.1 H, Lymphocytes # 1.1 L - Physical Exam Vitals: Vital Signs (12 hours) Temp Pulse Pulse Pulse Resp BP BP 08/11/20 12:20 80 77 119/58 L 120/78 08/11/20 11:04 79 19 08/11/20 07:41 99.1 F 77 24 H BP BP Pulse Ox Pulse Ox Pulse Ox 08/11/20 12:20 96 96 08/11/20 11:04 147/60 H 96 08/11/20 07:41 128/78 96 Weight Weight 165 lb 1.6 oz Physical Exam: The patient was seen and examined on the day of discharge. Problem - Discharge Plan Assessment: As per hospital course - Problem (1) Upper GI bleeding Code(s): K92.2 - GASTROINTESTINAL HEMORRHAGE, UNSPECIFIED Status: Acute (2) Elevated troponin I level Code(s): R77.8 - OTHER SPECIFIED ABNORMALITIES OF PLASMA PROTEINS Status: Acute (3) Hx of CABG Status: Acute (4) S/P aortic valve replacement with bioprosthetic valve Code(s): Z95.3 - PRESENCE OF XENOGENIC HEART VALVE Status: Acute (5) Acute blood loss anemia Code(s): D62 - ACUTE POSTHEMORRHAGIC ANEMIA Status: Acute Plan - Discharge Medications Home Medications: Medication Instructions Recorded Confirmed Type Alendronate Sodium [Fosamax] 70 mg PO Q7D 08/06/20 08/06/20 History Irbesartan [Avapro] 300 mg PO DAILY 08/06/20 08/06/20 History Metoprolol Succinate 25 mg PO BID 08/06/20 08/06/20 History Oxymetazoline HCl [Afrin Nasal 2 - 3 spray EA NARE BID PRN 08/06/20 08/06/20 History [place]] Rosuvastatin [Crestor] 40 mg PO HS 08/06/20 08/06/20 History Vit A/C/E/Zinc/Selenium/Copper 1 tab PO DAILY 08/06/20 08/06/20 History [Vision Formula Tablet] Docusate Sodium [Colace Liquid] 100 mg PO DAILY PRN udcup 08/11/20 Rx Metoprolol Succinate [Toprol XL] 25 mg PO DAILY tab 08/11/20 Rx Pantoprazole [Protonix] 40 mg IVP Q12HR vial 08/11/20 Rx Rosuvastatin [Crestor] 10 mg PO HS tab 08/11/20 Rx Allergies: iodine Allergy (Verified 08/06/20 15:28) - Follow up Plan Referrals: [facility],OUT OF [Primary Care Provider] - Disposition: OTHER HOSPITAL INPT Quality - Care Measures CORE MEASURES:: N/A - Stroke/TIA Specify reason for no DC antithrombotic therapy: Medical contraindication Specify reason for no DC anticoagulant: Medical contraindication Did you prescribe a statin medication?: Yes
[2020-08-11 16:17] VITALS: BP 147/60
[2020-08-11 16:19] VITALS: TEMP 98.6
--- NOTE | 2020-08-16 19:37 | EKG ---
Test Reason : Blood Pressure : / mmHG Vent. Rate : 078 BPM Atrial Rate : 267 BPM P-R Int : 000 ms QRS Dur : 112 ms QT Int : 400 ms P-R-T Axes : 000 006 169 degrees QTc Int : 456 ms Sinus rhythm Abnormal ECG No previous ECGs available Confirmed by MCKENZIE LEOS MD ([id number]) on 08/16/2020 7:37:18 PM Referred By: BRAYDEN Confirmed By:MCKENZIE LEOS MD
== END 2020-08-11 19:30 | disposition short-term general hospital (02) | DRG 378 ==
LOC: ERS 14:14 → ERHOLD 16:36 → 2NO 19:51
PROVIDERS: ADMIT Internal Medicine; ATTEND Internal Medicine
PROC: 0W3P8ZZ Control Bleeding in Gastrointestinal Tract, Via Natural or Artificial Opening Endoscopic (ICD-10-PCS; principal; 2020-08-07)
PROC: 0W3P8ZZ Control Bleeding in Gastrointestinal Tract, Via Natural or Artificial Opening Endoscopic (ICD-10-PCS; 2020-08-07)
PROC: 30233N1 Transfusion of Nonautologous Red Blood Cells into Peripheral Vein, Percutaneous Approach (ICD-10-PCS; 2020-08-07)
DX: K31.811 Angiodysplasia of stomach and duodenum with bleeding (principal); D62 Acute posthemorrhagic anemia; I51.81 Takotsubo syndrome; Z20.822 Contact with and (suspected) exposure to COVID-19; I10 Essential (primary) hypertension; H54.8 Legal blindness, as defined in USA; I25.10 Atherosclerotic heart disease of native coronary artery without angina pectoris; R94.31 Abnormal electrocardiogram [ECG] [EKG]; R79.89 Other specified abnormal findings of blood chemistry; H35.52 Pigmentary retinal dystrophy; I48.0 Paroxysmal atrial fibrillation; Z95.1 Presence of aortocoronary bypass graft; Z95.3 Presence of xenogenic heart valve; Z87.891 Personal history of nicotine dependence; Z82.1 Family history of blindness and visual loss; Z82.49 Family history of ischemic heart disease and other diseases of the circulatory system; Z90.49 Acquired absence of other specified parts of digestive tract; Z79.899 Other long term (current) drug therapy; Z79.82 Long term (current) use of aspirin; Z79.01 Long term (current) use of anticoagulants; Z91.041 Radiographic dye allergy status
CPT/HCPCS: 36415; 36430; 80048; 82553; 84484; 85014; 85018; 85025; 85610; 85730; 86850; 86900; 86901; 87635; 93005; 93010; 93306; 96365; 96366; 96375; C9113; C9132; J1100; J2405; J2704; P9016; U0003; U0005

== ENCOUNTER 2021-07-01 14:06 | Inpatient (IN) | payer MEDICARE ==
[2021-07-01 14:19] VITALS: BMI 25.7
[2021-07-01] MEDS ORDERED: Ondansetron PF 4 MG/2 ML Vial IVP PRN (14:44)
[2021-07-01] MEDS ORDERED: Acetaminophen 325 MG TAB PO PRN (14:44)
[2021-07-01] MEDS ORDERED: Piperacillin/Tazobactam 3.375 GM in Sodium Chloride 0.9% 100 ML IVPB SCH ×2 (15:15→18:00)
[2021-07-01] MEDS: Sodium Chloride 0.9% 1,000 ML IV SCH (15:47)
[2021-07-01] MEDS: Morphine 4 MG/ML VIAL SLOW IVP PRN ×2 (15:51→20:32)
[2021-07-01 19:43] LABS: SARS-CoV-2 PCR by NAA Not Detected (NotDetected)
[2021-07-01] MEDS: Piperacillin/Tazobactam 3.375 GM in Sodium Chloride 0.9% 100 ML IVPB SCH (20:29)
[2021-07-01] MEDS: Pantoprazole 40 MG VIAL IVP SCH (20:30)
[2021-07-02] MEDS: Morphine 4 MG/ML VIAL SLOW IVP PRN ×4 (01:13→14:25)
[2021-07-02] MEDS: Sodium Chloride 0.9% 1,000 ML IV SCH ×2 (03:09→08:06)
[2021-07-02] MEDS: Piperacillin/Tazobactam 3.375 GM in Sodium Chloride 0.9% 100 ML IVPB SCH ×3 (03:29→19:27)
[2021-07-02] MEDS: Oxymetazoline HCl 0.05% (30 ML BOT) NS PRN (03:30)
[2021-07-02 06:00] LABS: #Lymphocytes 1.2 thou/uL (1.20-3.40); #Monocytes 0.6 thou/uL (0.11-0.59); #Neutrophils 4.7 thou/uL (1.40-6.50); %Basophils 0.2 % (0.0-1.0); %Eosinophils 0.5 % (0.0-10.0); %Lymphocytes 18.2 % (21.0-51.0); %Monocytes 9.5 % (0.0-10.0); %Neutrophils 71.5 % (42.0-75.0); Hemoglobin 11.2 g/dL (12.0-16.0); Mean Corpuscular HGB CONC 32.3 g/dL (32.0-36.0); Mean Corpuscular Hemoglobin 27.4 pg (27.0-31.0); Mean Corpuscular Volume 84.8 fL (78.0-98.0); Mean Platelet Volume 7.4 fL (7.4-10.4); Platelet Count 173 thou/uL (130-400); White Blood Cell (WBC) Count 6.6 thou/uL (4.8-10.8)
[2021-07-02 06:17] LABS: Anion Gap 12 mmol/L (10-20); BUN (Urea Nitrogen) 6 mg/dL (9.8-20.1); Calc. Creatinine Clearance 69 mL/min (70-130); Calcium 8.5 mg/dL (7.8-10.44); Carbon Dioxide 25 mmol/L (23-31); Chloride 103 mmol/L (98-107); Glucose 92 mg/dL (83-110); Potassium 3.7 mmol/L (3.5-5.1); Sodium 136 mmol/L (136-145)
[2021-07-02] MEDS ORDERED: FLU VACC QS2021-22(65YR UP)/PF 240 MCG/0.7 ML SYRINGE IM ONE (09:00)
[2021-07-02] MEDS: Acetaminophen/Codeine 30-300mg Tablet PO PRN (18:34)
[2021-07-02] MEDS: Pantoprazole 40 MG VIAL IVP SCH (19:27)
[2021-07-03] MEDS: Acetaminophen/Codeine 30-300mg Tablet PO PRN ×4 (00:10→21:18)
[2021-07-03] MEDS: Melatonin 3 MG TAB PO PRN ×2 (00:10→21:17)
[2021-07-03] MEDS: Oxymetazoline HCl 0.05% (30 ML BOT) NS PRN (00:11)
[2021-07-03] MEDS: Piperacillin/Tazobactam 3.375 GM in Sodium Chloride 0.9% 100 ML IVPB SCH ×3 (04:18→20:15)
[2021-07-03 05:41] LABS: #Eosinphils 0.1 thou/uL (0.0-0.7); #Lymphocytes 0.9 thou/uL (1.20-3.40); #Monocytes 0.6 thou/uL (0.11-0.59); #Neutrophils 4.4 thou/uL (1.40-6.50); %Basophils 0.3 % (0.0-1.0); %Eosinophils 1.2 % (0.0-10.0); %Lymphocytes 15.5 % (21.0-51.0); %Monocytes 10.2 % (0.0-10.0); %Neutrophils 72.8 % (42.0-75.0); Hemoglobin 10.7 g/dL (12.0-16.0); Mean Corpuscular HGB CONC 32.9 g/dL (32.0-36.0); Mean Corpuscular Hemoglobin 28.4 pg (27.0-31.0); Mean Corpuscular Volume 86.1 fL (78.0-98.0); Mean Platelet Volume 7.2 fL (7.4-10.4); Platelet Count 164 thou/uL (130-400); Red Blood Cell (RBC) Count 3.76 mill/uL (4.20-5.40); White Blood Cell (WBC) Count 6.1 thou/uL (4.8-10.8)
[2021-07-03 06:02] LABS: Anion Gap 14 mmol/L (10-20); BUN (Urea Nitrogen) 6 mg/dL (9.8-20.1); Calc. Creatinine Clearance 81 mL/min (70-130); Calcium 8.3 mg/dL (7.8-10.44); Carbon Dioxide 23 mmol/L (23-31); Chloride 101 mmol/L (98-107); Glucose 80 mg/dL (83-110); Potassium 3.2 mmol/L (3.5-5.1); Sodium 135 mmol/L (136-145)
[2021-07-03] MEDS ORDERED: Potassium Chloride 20 MEQ TAB PO SCH (15:15)
[2021-07-03] MEDS: Rosuvastatin 20 MG TAB PO SCH (19:56)
[2021-07-03] MEDS: Pantoprazole 40 MG VIAL IVP SCH (20:24)
[2021-07-04] MEDS: Morphine 4 MG/ML VIAL SLOW IVP PRN ×2 (01:42→20:32)
[2021-07-04] MEDS: Piperacillin/Tazobactam 3.375 GM in Sodium Chloride 0.9% 100 ML IVPB SCH (04:08)
[2021-07-04 05:56] LABS: #Eosinphils 0.1 thou/uL (0.0-0.7); #Lymphocytes 1.2 thou/uL (1.20-3.40); #Neutrophils 5.9 thou/uL (1.40-6.50); %Basophils 0.2 % (0.0-1.0); %Lymphocytes 14.5 % (21.0-51.0); %Monocytes 11.7 % (0.0-10.0); %Neutrophils 72.6 % (42.0-75.0); Hemoglobin 10.5 g/dL (12.0-16.0); Mean Corpuscular HGB CONC 32.8 g/dL (32.0-36.0); Mean Corpuscular Hemoglobin 28.3 pg (27.0-31.0); Mean Corpuscular Volume 86.4 fL (78.0-98.0); Mean Platelet Volume 7.3 fL (7.4-10.4); Platelet Count 165 thou/uL (130-400); Red Blood Cell (RBC) Count 3.69 mill/uL (4.20-5.40); White Blood Cell (WBC) Count 8.1 thou/uL (4.8-10.8)
[2021-07-04 06:16] LABS: Anion Gap 8 mmol/L (10-20); BUN (Urea Nitrogen) 4 mg/dL (9.8-20.1); Calc. Creatinine Clearance 81 mL/min (70-130); Calcium 8.3 mg/dL (7.8-10.44); Carbon Dioxide 28 mmol/L (23-31); Chloride 103 mmol/L (98-107); Glucose 109 mg/dL (83-110); Sodium 135 mmol/L (136-145)
[2021-07-04] MEDS: Amoxicillin/Potassium Clav 875 MG TAB PO SCH ×2 (08:20→20:54)
[2021-07-04] MEDS: Acetaminophen/Codeine 30-300mg Tablet PO PRN ×3 (08:20→23:51)
[2021-07-04] MEDS: Rosuvastatin 20 MG TAB PO SCH (20:54)
[2021-07-04] MEDS: Pantoprazole 40 MG VIAL IVP SCH (20:54)
[2021-07-05 06:58] LABS: #Eosinphils 0.1 thou/uL (0.0-0.7); #Monocytes 0.9 thou/uL (0.11-0.59); #Neutrophils 6.6 thou/uL (1.40-6.50); %Basophils 0.2 % (0.0-1.0); %Eosinophils 0.6 % (0.0-10.0); %Lymphocytes 11.7 % (21.0-51.0); %Monocytes 10.2 % (0.0-10.0); %Neutrophils 77.3 % (42.0-75.0); Hemoglobin 10.8 g/dL (12.0-16.0); Mean Corpuscular HGB CONC 32.9 g/dL (32.0-36.0); Mean Corpuscular Volume 85.1 fL (78.0-98.0); Platelet Count 158 thou/uL (130-400); Red Blood Cell (RBC) Count 3.86 mill/uL (4.20-5.40); White Blood Cell (WBC) Count 8.5 thou/uL (4.8-10.8)
[2021-07-05 07:21] LABS: Anion Gap 12 mmol/L (10-20); BUN (Urea Nitrogen) 4 mg/dL (9.8-20.1); Calc. Creatinine Clearance 90 mL/min (70-130); Calcium 8.4 mg/dL (7.8-10.44); Carbon Dioxide 25 mmol/L (23-31); Chloride 100 mmol/L (98-107); Glucose 93 mg/dL (83-110); Potassium 3.4 mmol/L (3.5-5.1); Sodium 134 mmol/L (136-145)
[2021-07-05] MEDS ORDERED: Potassium Chloride 20 MEQ TAB PO SCH (07:45)
[2021-07-05] MEDS: Amoxicillin/Potassium Clav 875 MG TAB PO SCH (08:12)
[2021-07-05] MEDS: Acetaminophen/Codeine 30-300mg Tablet PO PRN ×2 (08:23→20:53)
[2021-07-05] MEDS: Morphine 4 MG/ML VIAL SLOW IVP PRN (11:18)
[2021-07-05] MEDS ORDERED: Piperacillin/Tazobactam 3.375 GM in Sodium Chloride 0.9% 100 ML IVPB SCH ×2 (13:30→18:00)
[2021-07-05] MEDS: NS 0.9% w/ 20 MEQ KCL 1,000 ML/1,000 ML BAG IV SCH (17:25)
[2021-07-05] MEDS: Piperacillin/Tazobactam 3.375 GM in Sodium Chloride 0.9% 100 ML IVPB SCH (18:23)
[2021-07-05] MEDS: Rosuvastatin 20 MG TAB PO SCH (20:43)
[2021-07-05] MEDS: Pantoprazole 40 MG VIAL IVP SCH (20:50)
[2021-07-05] MEDS: Oxymetazoline HCl 0.05% (30 ML BOT) NS PRN (21:58)
[2021-07-06] MEDS: Piperacillin/Tazobactam 3.375 GM in Sodium Chloride 0.9% 100 ML IVPB SCH ×3 (01:48→17:28)
[2021-07-06] MEDS: Acetaminophen/Codeine 30-300mg Tablet PO PRN ×2 (04:41→17:28)
[2021-07-06 06:22] LABS: #Lymphocytes 0.5 thou/uL (1.20-3.40); #Monocytes 0.8 thou/uL (0.11-0.59); #Neutrophils 6.1 thou/uL (1.40-6.50); %Basophils 0.1 % (0.0-1.0); %Eosinophils 0.3 % (0.0-10.0); %Lymphocytes 7.3 % (21.0-51.0); %Monocytes 10.3 % (0.0-10.0); %Neutrophils 81.9 % (42.0-75.0); Hemoglobin 10.4 g/dL (12.0-16.0); Mean Corpuscular HGB CONC 32.9 g/dL (32.0-36.0); Mean Corpuscular Hemoglobin 28.2 pg (27.0-31.0); Mean Corpuscular Volume 85.7 fL (78.0-98.0); Mean Platelet Volume 6.7 fL (7.4-10.4); Platelet Count 161 thou/uL (130-400); RBC Distribution Width 13.2 % (11.5-14.5); Red Blood Cell (RBC) Count 3.68 mill/uL (4.20-5.40); White Blood Cell (WBC) Count 7.4 thou/uL (4.8-10.8)
[2021-07-06 06:45] LABS: Anion Gap 12 mmol/L (10-20); BUN (Urea Nitrogen) 5 mg/dL (9.8-20.1); Calc. Creatinine Clearance 87 mL/min (70-130); Carbon Dioxide 23 mmol/L (23-31); Chloride 101 mmol/L (98-107); Glucose 87 mg/dL (83-110); Potassium 3.4 mmol/L (3.5-5.1); Sodium 133 mmol/L (136-145)
[2021-07-06] MEDS: NS 0.9% w/ 20 MEQ KCL 1,000 ML/1,000 ML BAG IV SCH ×2 (07:19→18:10)
[2021-07-06] MEDS ORDERED: Potassium Chloride 20 MEQ TAB PO SCH (08:15)
[2021-07-06] MEDS: Morphine 4 MG/ML VIAL SLOW IVP PRN (09:06)
[2021-07-06] MEDS: Rosuvastatin 20 MG TAB PO SCH (20:23)
[2021-07-06] MEDS: Pantoprazole 40 MG VIAL IVP SCH (20:23)
[2021-07-07] MEDS ORDERED: LACTINEX 1 TAB PO SCH ×2 (01:59→09:00)
[2021-07-07] MEDS: Piperacillin/Tazobactam 3.375 GM in Sodium Chloride 0.9% 100 ML IVPB SCH ×2 (03:01→10:12)
[2021-07-07 07:41] VITALS: BP 145/77; TEMP 97.7
[2021-07-07] MEDS: NS 0.9% w/ 20 MEQ KCL 1,000 ML/1,000 ML BAG IV SCH (08:07)
[2021-07-07 09:43] LABS: #Lymphocytes 0.6 thou/uL (1.20-3.40); #Monocytes 0.5 thou/uL (0.11-0.59); #Neutrophils 3.8 thou/uL (1.40-6.50); %Basophils 0.3 % (0.0-1.0); %Eosinophils 0.6 % (0.0-10.0); %Lymphocytes 12.2 % (21.0-51.0); %Monocytes 10.6 % (0.0-10.0); %Neutrophils 76.3 % (42.0-75.0); Hemoglobin 10.6 g/dL (12.0-16.0); Mean Corpuscular HGB CONC 33.3 g/dL (32.0-36.0); Mean Corpuscular Hemoglobin 28.5 pg (27.0-31.0); Mean Corpuscular Volume 85.6 fL (78.0-98.0); Mean Platelet Volume 6.8 fL (7.4-10.4); Platelet Count 171 thou/uL (130-400); RBC Distribution Width 13.1 % (11.5-14.5); Red Blood Cell (RBC) Count 3.72 mill/uL (4.20-5.40)
[2021-07-07 09:53] LABS: INR-International Normal Ratio 1.1; PTT 39.1 sec (22.9-36.1); Prothrombin Time 14.5 sec (12.0-14.7)
[2021-07-07 10:02] LABS: Anion Gap 9 mmol/L (10-20); BUN (Urea Nitrogen) 4 mg/dL (9.8-20.1); Calc. Creatinine Clearance 87 mL/min (70-130); Calcium 8.3 mg/dL (7.8-10.44); Carbon Dioxide 24 mmol/L (23-31); Chloride 102 mmol/L (98-107); Glucose 97 mg/dL (83-110); Potassium 3.4 mmol/L (3.5-5.1); Sodium 132 mmol/L (136-145)
[2021-07-07] MEDS ORDERED: Potassium Chloride 20 MEQ TAB PO SCH (11:00)
== END 2021-07-07 13:52 | disposition home or self-care (01) | DRG 392 ==
LOC: T4-B 14:06
PROVIDERS: ADMIT Family Medicine; ATTEND Internal Medicine
DX: K57.20 Diverticulitis of large intestine with perforation and abscess without bleeding (principal); Z20.822 Contact with and (suspected) exposure to COVID-19; Z23 Encounter for immunization; E87.1 Hypo-osmolality and hyponatremia; E87.6 Hypokalemia; E78.5 Hyperlipidemia, unspecified; I25.10 Atherosclerotic heart disease of native coronary artery without angina pectoris; H54.8 Legal blindness, as defined in USA; M81.0 Age-related osteoporosis without current pathological fracture; K21.9 Gastro-esophageal reflux disease without esophagitis; H35.52 Pigmentary retinal dystrophy; E78.00 Pure hypercholesterolemia, unspecified; Z95.1 Presence of aortocoronary bypass graft; Z91.041 Radiographic dye allergy status; Z91.013 Allergy to seafood; Z79.899 Other long term (current) drug therapy; Z90.49 Acquired absence of other specified parts of digestive tract; Z95.3 Presence of xenogenic heart valve; Z83.79 Family history of other diseases of the digestive system; Z90.710 Acquired absence of both cervix and uterus; Z98.51 Tubal ligation status
CPT/HCPCS: 36415; 74176; 80048; 85025; 85610; 85730; 90471; 90662; C9113; G0008; J2270; J2543; J3480; J3490; J7050; U0003; U0005

== ENCOUNTER 2021-08-06 11:56 | Inpatient (IN) | payer MEDICARE ==
[2021-08-06 18:06] VITALS: BMI 23.3
[2021-08-06] MEDS ORDERED: Acetaminophen 325 MG TAB PO PRN (19:24)
[2021-08-06] MEDS ORDERED: Ondansetron PF 4 MG/2 ML Vial IVP PRN (19:24)
[2021-08-06] MEDS ORDERED: Ondansetron ODT 4 MG TAB PO PRN (19:24)
[2021-08-06] MEDS ORDERED: Senokot S 8.6-50 MG TAB PO PRN (19:24)
[2021-08-06 20:20] LABS: Anion Gap 11 mmol/L (10-20); BUN (Urea Nitrogen) 6 mg/dL (9.8-20.1); Calc. Creatinine Clearance 72 mL/min (70-130); Calcium 7.9 mg/dL (7.8-10.44); Carbon Dioxide 20 mmol/L (23-31); Chloride 110 mmol/L (98-107); Glucose 133 mg/dL (83-110); Magnesium 1.9 mg/dL (1.6-2.6); Potassium 3.5 mmol/L (3.5-5.1); Sodium 137 mmol/L (136-145)
[2021-08-06 20:25] LABS: Troponin I 0.029 ng/mL (< 0.028)
[2021-08-06 20:33] LABS: Hemoglobin 9.8 g/dL (12.0-16.0); Mean Corpuscular HGB CONC 31.8 g/dL (32.0-36.0); Mean Corpuscular Hemoglobin 28.1 pg (27.0-31.0); Mean Corpuscular Volume 88.4 fL (78.0-98.0); RBC Distribution Width 14.4 % (11.5-14.5); Red Blood Cell (RBC) Count 3.48 mill/uL (4.20-5.40); White Blood Cell (WBC) Count 2.3 thou/uL (4.8-10.8)
[2021-08-06 20:45] LABS: #Lymphocytes 0.5 thou/uL (1.20-3.40); #Monocytes 0.3 thou/uL (0.11-0.59); #Neutrophils 1.5 thou/uL (1.40-6.50); %Basophils 1.4 % (0.0-1.0); %Eosinophils 0.2 % (0.0-10.0); %Lymphocytes 20.9 % (21.0-51.0); %Monocytes 12.5 % (0.0-10.0); Mean Platelet Volume 7.5 fL (7.4-10.4); Platelet Count 117 thou/uL (130-400); Platelet Morphology Comment Appears Decreased
[2021-08-06] MEDS: Sodium Chloride 0.9% 1,000 ML IV SCH (21:08)
[2021-08-06 22:55] LABS: Bacteria/HPF None Seen HPF (None Seen); Bilirubin Negative (Negative); Blood, Urine Negative (Negative); Clarity Clear (Clear); Glucose, Urine (Dipstick) Normal (Negative); Ketone, Urine Negative (Negative); Leukocyte Negative Leu/uL (Negative); Nitrite Negative (Negative); Protein, Urine (Dipstick) Negative (Neg-Trace); RBC/HPF 0-3 HPF (0-3); Specific Gravity, Urine 1.016 (1.002-1.036); Squamous Epithelial None Seen HPF (0-3); Urobilinogen Normal mg/dL (Less than 2); WBC/HPF 0-3 HPF (0-3)
[2021-08-07] MEDS ORDERED: Pantoprazole 40 MG VIAL IVP SCH (01:30)
[2021-08-07 02:55] LABS: SARS-CoV-2 NAA Rapid Test DETECTED (NotDetected)
[2021-08-07 05:10] LABS: #Lymphocytes 0.9 thou/uL (1.20-3.40); #Monocytes 0.4 thou/uL (0.11-0.59); #Neutrophils 1.9 thou/uL (1.40-6.50); %Basophils 0.4 % (0.0-1.0); %Eosinophils 0.2 % (0.0-10.0); %Monocytes 12.4 % (0.0-10.0); Hemoglobin 9.7 g/dL (12.0-16.0); Mean Corpuscular HGB CONC 32.9 g/dL (32.0-36.0); Mean Corpuscular Hemoglobin 28.4 pg (27.0-31.0); Mean Corpuscular Volume 86.3 fL (78.0-98.0); Platelet Count 116 thou/uL (130-400); RBC Distribution Width 14.4 % (11.5-14.5); Red Blood Cell (RBC) Count 3.41 mill/uL (4.20-5.40); White Blood Cell (WBC) Count 3.2 thou/uL (4.8-10.8)
[2021-08-07 05:30] LABS: Anion Gap 11 mmol/L (10-20); BUN (Urea Nitrogen) 7 mg/dL (9.8-20.1); Calc. Creatinine Clearance 72 mL/min (70-130); Calcium 7.8 mg/dL (7.8-10.44); Carbon Dioxide 18 mmol/L (23-31); Cardiac Risk 2.6 (Less than 4.5); Chloride 111 mmol/L (98-107); Cholesterol 99 mg/dl (< 200 Desired); Glucose 92 mg/dL (83-110); HDL Cholesterol 38 mg/dL (>60 Neg Risk); LDL Cholesterol, Calculated 48 mg/dL; Potassium 3.5 mmol/L (3.5-5.1); Sodium 136 mmol/L (136-145); Triglycerides 64 mg/dL (Less than 150)
[2021-08-07] MEDS: Sodium Chloride 0.9% 1,000 ML IV SCH (06:47)
[2021-08-07 08:01] LABS: Free T4 (Free Thyroxine) 0.93 ng/dL (0.70-1.48)
[2021-08-07] MEDS ORDERED: FLU VACC QS2021-22(65YR UP)/PF 240 MCG/0.7 ML SYRINGE IM ONE (09:00)
[2021-08-07] MEDS: Pantoprazole 40 MG VIAL IVP SCH ×2 (09:35→20:52)
[2021-08-07] MEDS: Zinc Sulfate 220 MG CAP PO SCH (09:35)
[2021-08-07] MEDS: Ascorbic Acid 500 mg Chewable Tablet PO SCH (09:35)
[2021-08-07 09:53] LABS: Hemoglobin 9.5 g/dL (12.0-16.0)
[2021-08-07] MEDS ORDERED: Magnesium Sulfate 2 GM in Sodium Chloride 0.9% 100 ML IVPB SCH (10:15)
[2021-08-07] MEDS ORDERED: Magnesium 2 GM/50 ML 2 GM in Premix Bag 1 BAG IVPB SCH (10:45)
[2021-08-07 10:47] LABS: Reticulocyte Count 1.9 % (0.5-1.5)
[2021-08-07] MEDS: Potassium Chloride 20 MEQ TAB PO SCH ×2 (12:01→17:20)
[2021-08-07] MEDS ORDERED: Cepastat Lozenges 1 LOZ PO PRN (18:27)
[2021-08-07] MEDS ORDERED: Loratadine 10 MG TAB PO SCH (19:30)
[2021-08-07] MEDS: Rosuvastatin 20 MG TAB PO SCH (20:51)
[2021-08-08 05:14] LABS: Anion Gap 10 mmol/L (10-20); BUN (Urea Nitrogen) 4 mg/dL (9.8-20.1); Calc. Creatinine Clearance 74 mL/min (70-130); Carbon Dioxide 24 mmol/L (23-31); Chloride 108 mmol/L (98-107); Glucose 77 mg/dL (83-110); Potassium 3.7 mmol/L (3.5-5.1); Sodium 138 mmol/L (136-145)
[2021-08-08 05:27] LABS: #Monocytes 0.3 thou/uL (0.11-0.59); #Neutrophils 1.7 thou/uL (1.40-6.50); %Basophils 0.2 % (0.0-1.0); %Eosinophils 0.7 % (0.0-10.0); %Lymphocytes 32.5 % (21.0-51.0); %Monocytes 11.5 % (0.0-10.0); %Neutrophils 55.1 % (42.0-75.0); Hemoglobin 9.8 g/dL (12.0-16.0); Mean Corpuscular HGB CONC 31.7 g/dL (32.0-36.0); Mean Corpuscular Hemoglobin 27.9 pg (27.0-31.0); Mean Corpuscular Volume 87.9 fL (78.0-98.0); Mean Platelet Volume 7.7 fL (7.4-10.4); Platelet Count 117 thou/uL (130-400); RBC Distribution Width 14.3 % (11.5-14.5)
[2021-08-08] MEDS: Zinc Sulfate 220 MG CAP PO SCH (09:39)
[2021-08-08] MEDS: Loratadine 10 MG TAB PO SCH (09:39)
[2021-08-08] MEDS: Pantoprazole 40 MG VIAL IVP SCH ×2 (09:39→20:10)
[2021-08-08] MEDS: Ascorbic Acid 500 mg Chewable Tablet PO SCH (09:39)
[2021-08-08] MEDS: Dronedarone HCl 400 MG TAB PO SCH (16:31)
[2021-08-08 18:04] LABS: SARS-CoV-2 PCR by NAA DETECTED (NotDetected)
[2021-08-08] MEDS: Rosuvastatin 20 MG TAB PO SCH (20:10)
[2021-08-09] MEDS: Ascorbic Acid 500 mg Chewable Tablet PO SCH (09:17)
[2021-08-09] MEDS: Zinc Sulfate 220 MG CAP PO SCH (09:19)
[2021-08-09] MEDS: Dronedarone HCl 400 MG TAB PO SCH ×2 (09:19→17:18)
[2021-08-09] MEDS: Loratadine 10 MG TAB PO SCH (09:19)
[2021-08-09] MEDS: Rosuvastatin 20 MG TAB PO SCH (20:22)
[2021-08-09] MEDS ORDERED: Electrolyte Replacement Protocol 1 EACH FS SCH (22:00)
[2021-08-10 06:25] LABS: #Lymphocytes 0.5 thou/uL (1.20-3.40); #Monocytes 0.5 thou/uL (0.11-0.59); #Neutrophils 2.6 thou/uL (1.40-6.50); %Eosinophils 0.5 % (0.0-10.0); %Lymphocytes 13.9 % (21.0-51.0); %Monocytes 12.7 % (0.0-10.0); %Neutrophils 72.9 % (42.0-75.0); Hemoglobin 10.2 g/dL (12.0-16.0); Mean Corpuscular HGB CONC 31.9 g/dL (32.0-36.0); Mean Corpuscular Hemoglobin 27.8 pg (27.0-31.0); Platelet Count 118 thou/uL (130-400); RBC Distribution Width 14.1 % (11.5-14.5); Red Blood Cell (RBC) Count 3.69 mill/uL (4.20-5.40); White Blood Cell (WBC) Count 3.5 thou/uL (4.8-10.8)
[2021-08-10 06:50] LABS: Anion Gap 13 mmol/L (10-20); BUN (Urea Nitrogen) 4 mg/dL (9.8-20.1); Calc. Creatinine Clearance 70 mL/min (70-130); Calcium 8.1 mg/dL (7.8-10.44); Carbon Dioxide 24 mmol/L (23-31); Chloride 102 mmol/L (98-107); Glucose 86 mg/dL (83-110); Magnesium 1.9 mg/dL (1.6-2.6); Sodium 136 mmol/L (136-145)
[2021-08-10] MEDS ORDERED: Potassium Chloride 20 MEQ TAB PO SCH (08:00)
[2021-08-10] MEDS ORDERED: Magnesium 2 GM/50 ML 2 GM in Premix Bag 1 BAG IVPB SCH (08:00)
[2021-08-10] MEDS: Ascorbic Acid 500 mg Chewable Tablet PO SCH (09:14)
[2021-08-10] MEDS: Zinc Sulfate 220 MG CAP PO SCH (09:14)
[2021-08-10] MEDS: Loratadine 10 MG TAB PO SCH (09:15)
[2021-08-10] MEDS: Dronedarone HCl 400 MG TAB PO SCH ×2 (09:15→15:50)
[2021-08-10] MEDS: Rosuvastatin 20 MG TAB PO SCH (20:46)
[2021-08-11] MEDS ORDERED: Piperacillin/Tazobactam 3.375 GM in Sodium Chloride 0.9% 100 ML IVPB SCH (10:00)
[2021-08-11] MEDS: Dronedarone HCl 400 MG TAB PO SCH ×2 (10:34→18:20)
[2021-08-11] MEDS: Loratadine 10 MG TAB PO SCH (10:34)
[2021-08-11] MEDS: Zinc Sulfate 220 MG CAP PO SCH (10:34)
[2021-08-11] MEDS: Ascorbic Acid 500 mg Chewable Tablet PO SCH (10:34)
[2021-08-11 11:40] LABS: Anion Gap 15 mmol/L (10-20); BUN (Urea Nitrogen) 5 mg/dL (9.8-20.1); Calc. Creatinine Clearance 72 mL/min (70-130); Calcium 8.1 mg/dL (7.8-10.44); Carbon Dioxide 23 mmol/L (23-31); Chloride 100 mmol/L (98-107); Glucose 93 mg/dL (83-110); Sodium 135 mmol/L (136-145)
[2021-08-11 11:41] LABS: Magnesium 1.9 mg/dL (1.6-2.6); Phosphorus 2.4 mg/dL (2.3-4.7)
[2021-08-11 11:47] LABS: Potassium 2.8 mmol/L (3.5-5.1)
[2021-08-11] MEDS ORDERED: Potassium Chloride 20 MEQ TAB PO SCH (12:00)
[2021-08-11] MEDS ORDERED: Magnesium 2 GM/50 ML 2 GM in Premix Bag 1 BAG IVPB SCH (12:45)
[2021-08-11] MEDS: Potassium Chloride 20 MEQ in Premix Bag 1 BAG IVPB SCH ×2 (12:45→15:30)
[2021-08-11] MEDS: Piperacillin/Tazobactam 3.375 GM in Sodium Chloride 0.9% 100 ML IVPB SCH ×2 (15:30→23:13)
[2021-08-11] MEDS: Rosuvastatin 20 MG TAB PO SCH (21:23)
[2021-08-11] MEDS: Simethicone Chewable 80 MG TAB PO SCH (21:23)
[2021-08-12] MEDS: Piperacillin/Tazobactam 3.375 GM in Sodium Chloride 0.9% 100 ML IVPB SCH ×2 (03:42→11:13)
[2021-08-12 05:42] LABS: Anion Gap 16 mmol/L (10-20); BUN (Urea Nitrogen) 4 mg/dL (9.8-20.1); Calc. Creatinine Clearance 74 mL/min (70-130); Carbon Dioxide 19 mmol/L (23-31); Chloride 103 mmol/L (98-107); Glucose 83 mg/dL (83-110); Potassium 3.8 mmol/L (3.5-5.1); Sodium 134 mmol/L (136-145)
[2021-08-12 05:51] LABS: Mean Corpuscular HGB CONC 32.1 g/dL (32.0-36.0); Mean Corpuscular Hemoglobin 27.9 pg (27.0-31.0); Platelet Count 157 thou/uL (130-400); RBC Distribution Width 14.1 % (11.5-14.5); Red Blood Cell (RBC) Count 3.95 mill/uL (4.20-5.40); White Blood Cell (WBC) Count 3.2 thou/uL (4.8-10.8)
[2021-08-12] MEDS ORDERED: Potassium Bicarbonate/Cit Ac 20 MEQ TAB PO SCH (08:00)
[2021-08-12 09:23] LABS: Band 8 % (5-11); Lymphocytes 19 % (21-51); MDiff Complete? YES; Monocytes 16 % (0-10); Neutrophil 56 % (42-75); Platelet Morphology Comment Appears Adequate; RBC Morphology Normal; Reactive Lymphocytes 1 % (0-10)
[2021-08-12] MEDS: Dronedarone HCl 400 MG TAB PO SCH (11:14)
[2021-08-12] MEDS: Loratadine 10 MG TAB PO SCH (11:14)
[2021-08-12] MEDS: Ascorbic Acid 500 mg Chewable Tablet PO SCH (11:14)
[2021-08-12] MEDS: Zinc Sulfate 220 MG CAP PO SCH (11:14)
[2021-08-12] MEDS: Simethicone Chewable 80 MG TAB PO SCH ×2 (11:14→15:43)
[2021-08-12 15:46] VITALS: BP 140/65; TEMP 98.1
== END 2021-08-12 16:21 | DRG 308 ==
LOC: 2NO 16:34 → OBSVTOIN 17:05
PROVIDERS: ADMIT Family Medicine; ATTEND Internal Medicine
DX: I48.0 Paroxysmal atrial fibrillation (principal); U07.1 COVID-19; K57.20 Diverticulitis of large intestine with perforation and abscess without bleeding; D61.818 Other pancytopenia; I10 Essential (primary) hypertension; I25.10 Atherosclerotic heart disease of native coronary artery without angina pectoris; E87.6 Hypokalemia; E83.42 Hypomagnesemia; I65.21 Occlusion and stenosis of right carotid artery; E78.5 Hyperlipidemia, unspecified; H54.8 Legal blindness, as defined in USA; M81.0 Age-related osteoporosis without current pathological fracture; K21.9 Gastro-esophageal reflux disease without esophagitis; G93.89 Other specified disorders of brain; Z95.1 Presence of aortocoronary bypass graft; Z95.3 Presence of xenogenic heart valve; Z91.041 Radiographic dye allergy status; Z91.013 Allergy to seafood; Z79.899 Other long term (current) drug therapy; Z98.51 Tubal ligation status; Z90.49 Acquired absence of other specified parts of digestive tract; Z87.891 Personal history of nicotine dependence
CPT/HCPCS: 36415; 70551; 74176; 80048; 80061; 81001; 83735; 84100; 84439; 84443; 84481; 85025; 85046; 93005; 93010; 93306; 93880; C9113; J2405; J2543; J3475; J3480; J3490; J7050; Q0162; U0002; U0003; U0005